=== PATIENT | male | born 1970 | race Caucasian/White ===

== ENCOUNTER 2018-04-01 22:33 | Emergency (ER) | payer SELFPAY ==
[~2018-04-01] VITALS: Ht 172.7 cm; Wt 87.2 kg
[2018-04-01 22:35] VITALS: Ht 172.7 cm; Wt 87.2 kg
--- NOTE | 2018-04-01 23:27 | ERD ---
ER Documentation Chief Complaint Chief Complaint ETOH, LAST DRINK X3HRS HPI 48-year-old male well-known to us who comes in saying that he has been drinking alcohol. Denies suicidal homicidal ideation. Denies any fevers or chills. Denies any nausea or vomiting. Denies any auditory or visual hallucinations. ROS All systems reviewed and are negative except as per history of present illness. Medications Home Meds No Active Prescriptions or Reported Meds Allergies Allergies: Coded Allergies: No Known Drug Allergy (Verified Allergy, Unknown, 11/10/15) PMhx/Soc History of Surgery: Yes ( "brain surgery"due to trauma) Anesthesia Reaction: No Hx Neurological Disorder: No Hx Respiratory Disorders: No Hx Cardiac Disorders: No Hx Psychiatric Problems: No Hx Miscellaneous Medical Probl: No Hx Alcohol Use: Yes (PT DRINKS BEER DAILY) Hx Substance Use: No Hx Tobacco Use: Yes Physical Exam Vitals Vital Signs Date Temp Pulse Resp B/P (MAP) Pulse Ox O2 O2 Flow FiO2 Time Delivery Rate 04/01/18 96.8 89 19 117/80 97 22:35 (92) Physical Exam Const: No acute distress Head: Atraumatic Eyes: Normal Conjunctiva ENT: Normal External Ears, Nose and Mouth. Neck: Full range of motion. No meningismus. Resp: Clear to auscultation bilaterally Cardio: Regular rate and rhythm, no murmurs Abd: Soft, non tender, non distended. Normal bowel sounds Skin: No petechiae or rashes Back: No midline or flank tenderness Ext: No cyanosis, or edema Neur: Awake and alert Psych: Normal Mood and Affect Procedures/MDM Medical decision makin-year-old male here with acute alcohol intoxication. At this point is clinically stable for outpatient management. Is been advised to stop drinking follow-up with primary care physician. Departure Diagnosis: Primary Impression: Alcoholic intoxication Complication of substance-induced condition: with unspecified complication Qualified Codes: F10.929 - Alcohol use, unspecified with intoxication, unspecified Condition: Stable Patient Instructions: Alcohol Intoxication RAYNE SOSA Apr 01, 2018 23:27
[2018-04-01 23:32] VITALS: BP 112/70; PULSE 88; RESP 19
== END 2018-04-01 23:32 | disposition home or self-care (01) ==
LOC: E/R 22:33
DX: F10.929 Alcohol use, unspecified with intoxication, unspecified (principal); Z87.891 Personal history of nicotine dependence
CPT/HCPCS: 99282

== ENCOUNTER 2018-11-17 07:58 | Emergency (ER) | payer SELFPAY ==
[~2018-11-17] VITALS: Ht 160 cm; Wt 90.0 kg
[2018-11-17 08:01] VITALS: BP 140/89; PULSE 90; RESP 18; Ht 160 cm; Wt 90.0 kg
[2018-11-17] MEDS ORDERED: DIPHTH/TET/ACEL PERTUSS (ADULT) 0.5 ML VIAL IM* ONE (08:30)
== END 2018-11-17 09:34 | disposition home or self-care (01) ==
LOC: E/R 07:58
DX: S01.412A Laceration without foreign body of left cheek and temporomandibular area, initial encounter (principal); F17.210 Nicotine dependence, cigarettes, uncomplicated; F10.129 Alcohol abuse with intoxication, unspecified; Y09 Assault by unspecified means; Z23 Encounter for immunization
CPT/HCPCS: 70450; 70486; 72125; 90471; 90715

== ENCOUNTER 2018-12-10 19:12 | Emergency (ER) | payer SELFPAY ==
[~2018-12-10] VITALS: Ht 170.2 cm; Wt 78.4 kg
[2018-12-10 19:26] VITALS: BP 111/93; PULSE 106; RESP 20; Ht 170.2 cm; Wt 78.4 kg
== END 2018-12-10 19:41 | disposition left against medical advice (07) ==
LOC: E/R 19:12
DX: Z53.21 Procedure and treatment not carried out due to patient leaving prior to being seen by health care provider (principal)